=== PATIENT | male | born 1955 | race American Indian/Alaskan Native ===

== ENCOUNTER 2017-07-29 08:14 | Day surgery (SDC) | payer MEDICARE, MEDICAID ==
[2017-07-29 08:28] VITALS: BMI 34.0
[2017-07-29 10:35] LABS: CALCIUM 9.1 mg/dl (8.6-10.4)
[2017-07-29] MEDS ORDERED: HEPARIN-NS 5,000 UNITS/500 ML 10,000 UNIT/1,000 ML BAG IV ONE (11:36)
[2017-07-29] MEDS ORDERED: Midazolam 2 MG/2 ML VIAL ONE (11:37)
[2017-07-29] MEDS ORDERED: Propofol 10 mg/ml Inj (20 ML) ONE (11:37)
[2017-07-29] MEDS ORDERED: Iohexol 240 200 ML ONE (11:37)
[2017-07-29] MEDS ORDERED: Sodium Chloride 0.9% 1,000 ML IV ONE (11:45)
[2017-07-29] MEDS ORDERED: Etomidate 20 mg/10ml Inj IV ONE (12:07)
[2017-07-29] MEDS ORDERED: ceFAZolin IV 2 gm in Dextrose 2 GM/50 ML BAG IVPB ONE (12:35)
[2017-07-29] MEDS ORDERED: Neostigmine Methylsulfate 3mg/3ml Syringe IV ONE (14:27)
[2017-07-29] MEDS ORDERED: Oxycodone/Acetaminophen 5/325 mg Tab PO PRN (14:40)
--- NOTE | 2017-07-29 14:47 | PCM.SURG1 ---
Surgeon's Initial Post Op Note - Surgeon's Notes Surgeon: Dr. Deleon Director Financial Planning: PGY1 Pre-Operative Diagnosis: End stage renal disease Operative Findings: see op note Post-Operative Diagnosis: as above Operation Performed: left arm AV shunt w/ Hybrid graft Specimen/Specimens Removed: none Estimated Blood Loss: EBL {In ML}: 25 Blood Products Given: N/A Drains Used: No Drains Date of Surgery/Procedure: 07/29/17 Time of Surgery/Procedure: 14:47
[2017-07-29] MEDS ORDERED: HYDROmorphone 0.5 mg/0.5 ml ISec IVP PRN (14:48)
[2017-07-29] MEDS: HYDROmorphone 0.5 mg/0.5 ml ISec ONE ×2 (14:57→15:34)
[2017-07-29] MEDS ORDERED: Sodium Chloride 0.9% 1,000 ML IV SCH (15:00)
[2017-07-29] MEDS ORDERED: Sodium Chloride 0.9% 250 ML IV ONE ×2 (15:15→16:00)
[2017-07-29 16:29] VITALS: RESP 16; TEMP 97.3; O2SAT 95
[2017-07-29 17:09] VITALS: BP 111/48; PULSE 75
--- NOTE | 2017-07-30 00:45 | OP ---
PROCEDURE DATE: 07/29/2017. PREOPERATIVE DIAGNOSIS: Multiple pseudoaneurysms, left arm arteriovenous fistula. POSTOPERATIVE DIAGNOSIS: Multiple pseudoaneurysms, left arm arteriovenous fistula. PROCEDURE: Revision of AV fistula, left arm with placement of high-bridge shunt and balloon angioplasty of venous anastomosis to deploy venous stent. SURGEON: Sidney Deleon Jr., MD METAL WIRE COATING OPERATOR: None. TYPE OF ANESTHESIA: Local sedation. ANESTHESIA ADMINISTERED BY: Mr. Sargent. INDICATIONS: The patient is a 62-year-old man with renal insufficiency, is presently dialyzed by means of a catheter. The patient previously had placement of a fistula in his left arm. This became aneurysmal and scab formation over it and because of this, it was requested that it be revised. OPERATIVE FINDINGS: 1. The venous anastomosis was done using the hybrid technique to the axillary vein. This was above the previously placed stent. In addition, venogram was taken which did not show any evidence of central vein stenosis and showed all the grafts were widely patent. The rest of the intraoperative findings were unremarkable. 2. The proximal anastomosis was done to the previously arterialized portion of the basilic vein. DESCRIPTION OF PROCEDURE: The patient was given general anesthesia, intravenous antibiotics. The arm was prepped with Betadine. The venous side, a puncture was made. The arterial side was dissected out. We then created a subcutaneous tunnel. We then carried out the deployment of the venous stent first then brought this to the tunnel and then ballooned it after it was in the actual anatomic position at which it will sit. We then terminated the procedure after completing the arterial anastomosis. Heparin was given which was not reversed at the end. Blood loss in the procedure was 250 mL. The operation carried out was revision of AV fistula, left arm with creation of high-grade AV shunt with venogram. No evidence of central vein stenosis. Sidney Deleon Jr., MD
--- NOTE | 2017-07-30 10:28 | RAD ---
PROCEDURE: HISTORY: As Above COMPARISON: None TECHNIQUE: Total fluoroscopic time utilized during the procedure: 188 .6 seconds. Total dose 0.80139 mGy cm squared FINDINGS: Submitted images from the current procedure: 13 Please refer to the physician's notes performing the procedure. IMPRESSION: Less than 1 hour fluoroscopic time utilized during performance of the procedure
== END 2017-07-29 18:22 | disposition home or self-care (01) ==
LOC: C.SDS 08:14
PROVIDERS: ATTEND Surgery Vascular Surgery
DX: T82.898A Other specified complication of vascular prosthetic devices, implants and grafts, initial encounter (principal); Y71.1 Therapeutic (nonsurgical) and rehabilitative cardiovascular devices associated with adverse incidents; Y92.9 Unspecified place or not applicable; E11.22 Type 2 diabetes mellitus with diabetic chronic kidney disease; Z79.4 Long term (current) use of insulin; I12.0 Hypertensive chronic kidney disease with stage 5 chronic kidney disease or end stage renal disease; N18.6 End stage renal disease; Z99.2 Dependence on renal dialysis
CPT/HCPCS: 36415; 36832; 80048; 82948; C1725; C1768; C1769; C1894; J0690; J1170; J1644; J2250; J2704; J2710; J3010; J7030; J7040; J7050

== ENCOUNTER 2017-12-09 08:10 | Day surgery (SDC) | payer MEDICARE, MEDICAID ==
[2017-12-09 09:55] LABS: CALCIUM 8.8 mg/dl (8.6-10.4)
[2017-12-09] MEDS ORDERED: HEPARIN-NS 5,000 UNITS/500 ML 5,000 UNIT/500 ML BAG IV ONE ×2 (10:49→12:32)
[2017-12-09] MEDS ORDERED: Iohexol 240 200 ML ONE ×2 (10:49→11:16)
[2017-12-09] MEDS ORDERED: ceFAZolin IV 1 gm in Dextrose 2 GM/100 ML BAG IVPB ONE (11:16)
[2017-12-09] MEDS ORDERED: Midazolam 2 MG/2 ML VIAL ONE (12:42)
[2017-12-09] MEDS ORDERED: Propofol 10 mg/ml Inj (20 ML) ONE (12:43)
[2017-12-09] MEDS ORDERED: ePHEDrine 50 mg/ml Inj ONE (13:56)
[2017-12-09] MEDS ORDERED: HYDROmorphone 0.5 mg/0.5 ml ISec IVP PRN (15:01)
--- NOTE | 2017-12-09 15:02 | PCM.SURG1 ---
Surgeon's Initial Post Op Note - Surgeon's Notes Surgeon: Dr. Deleon Quill Machine Tender: Dr. Garcia Type of Anesthesia: General Endo Pre-Operative Diagnosis: CKD Operative Findings: See operative dictation Post-Operative Diagnosis: CKD Operation Performed: Left upper extremity arteriovenous fistula formation Specimen/Specimens Removed: None Estimated Blood Loss: EBL {In ML}: 25 Blood Products Given: N/A Drains Used: No Drains Post-Op Condition: Good Date of Surgery/Procedure: 12/09/17 Time of Surgery/Procedure: 15:02
[2017-12-09] MEDS ORDERED: Oxycodone/Acetaminophen 5/325 mg Tab PO PRN (16:00)
[2017-12-09 16:36] VITALS: RESP 18
[2017-12-09 17:05] VITALS: PULSE 73; O2SAT 98
[2017-12-09 17:54] VITALS: BP 136/80; TEMP 97.7
--- NOTE | 2017-12-10 06:37 | OP ---
PROCEDURE DATE: 12/09/2017 PREOPERATIVE DIAGNOSIS: Renal failure. POSTOPERATIVE DIAGNOSIS: Renal failure. PROCEDURE CARRIED OUT: Brachiocephalic fistula, right elbow. SURGEON: Sidney Deleon Jr., MD SPREADER BOX OPERATOR: Areli. ANESTHESIOLOGIST: Mr. Carvajal. INDICATIONS: The patient is a 62-year-old man with failed access in the left arm. OPERATIVE FINDINGS: The cephalic vein was of good size and caliber, and end-to-side spatulated anastomosis was carried out using loop magnification and heparin anticoagulation. After completion of the anastomosis and obtained hemostasis, the wound was approximated with Monocryl sutures. The skin was closed with nylon sutures. Blood loss to the entire procedure was 25 to 50 mL. Operation carried out is brachiocephalic fistula, right elbow. Sidney Deleon Jr., MD cc:
== END 2017-12-09 17:56 | disposition home or self-care (01) ==
LOC: C.SDS 08:10
PROVIDERS: ATTEND Surgery Vascular Surgery
DX: E11.22 Type 2 diabetes mellitus with diabetic chronic kidney disease (principal); I12.0 Hypertensive chronic kidney disease with stage 5 chronic kidney disease or end stage renal disease; N18.6 End stage renal disease; Z99.2 Dependence on renal dialysis; Z95.828 Presence of other vascular implants and grafts; E78.5 Hyperlipidemia, unspecified; E66.9 Obesity, unspecified; F17.210 Nicotine dependence, cigarettes, uncomplicated; Z98.890 Other specified postprocedural states; Z79.82 Long term (current) use of aspirin; Z79.4 Long term (current) use of insulin; Z79.899 Other long term (current) drug therapy
CPT/HCPCS: 36415; 36821; 80048; 82948; J0690; J1644; J2250; J2704; J3010